=== PATIENT | male | born 1970 | race Caucasian/White ===

== ENCOUNTER 2016-11-11 16:41 | Day surgery (SDC) | payer OTHER ==
--- NOTE | ~2016-11-11 | OP ---
Record Of Operation [facility] [address] [place]. [address] NAME: EVELIA EASLEY : 70 STATUS : [facility]#: [id number] AGE: 45 ADM/REG DATE : 11/11/16 MR#: [id number] REPORT SERV DATE: 11/12/16 DICTATED BY: ASHTYN DAVALOS DATE: 11/12/16 REPORT STATUS : Draft TRANSCRIBED BY: MODL DATE: 11/12/16 DATE OF PROCEDURE: 11/11/2016 TITLE OF OPERATION: Cystourethroscopy, right retrograde pyelogram, right ureteroscopy with laser lithotripsy, and placement of 6 x 24 right ureteral stent with tether. PREOPERATIVE DIAGNOSIS: Right ureteral stone. POSTOPERATIVE DIAGNOSIS: Right ureteral stone. INDICATIONS: Mr. Easley is a 45-year-old patient who is a patient of my partner, Dr. Buenrostro. He had a symptomatic 4 mm stone. He has failed conservative management. I have been asked to treat his stone as Dr. Buenrostro is going on vacation. ANESTHESIA: General. COMPLICATIONS: None. IMPLANT: 6 x 26 right ureteral stent. SPECIMEN: Right stone for analysis. NARRATIVE: The patient was brought to the operating room, identified by his wristband. General anesthesia was induced. Levaquin was given for preoperative antibiotics. He was placed in dorsal lithotomy position, prepped and draped in sterile fashion. A 20-Israeli cystoscope was placed into his urethra and into his bladder. The urethra was normal as was the bladder. The right ureteral orifice was identified and cannulated with a 5-Israeli open- ended catheter. A retrograde pyelogram was shot, which demonstrated mild hydronephrosis and a filling defect in the proximal ureter. A wire was placed up through the catheter into the kidney under fluoroscopic guidance. Catheter was removed. A flexible ureteroscope was placed over the wire into the ureter. The ureter was inspected. There were no stones in the ureter. I drove the scope up into the kidney. All major minor calices were thoroughly inspected. There was a 4 mm stone. It was grasped with a flexible grasper and pulled back into the ureter. The stone was small and came down to the distal ureter easily. Once in the distal ureter, there was some resistance met. The basket was removed. The stone was fragmented into several small pieces with a 200 micron holmium laser fiber. These pieces were removed completely and sent to pathology for analysis. There was no other stones at all. There was no ureteral damage. A wire was then placed back up to the level of the kidney. A 6 x 24 ureteral stent was placed in standard fashion. The proximal coil was in the renal pelvis and the distal coil was in the bladder. A tether was left. The tether was taped to the penis. A 16-Israeli coude catheter was placed into the bladder. The balloon was inflated to 10 mL of sterile water. This catheter will be removed in the recovery room. The patient was awoken from anesthesia and transferred to the recovery room in stable condition. I will see him on Monday for stent removal. Record Of Operation [address] [place]. [address] NAME: EVELIA EASLEY : 70 STATUS : [facility] PAT#: [id number] AGE: 45 ADM/REG DATE : 11/11/16 MR#: [id number] REPORT SERV DATE: 11/12/16 DICTATED BY: ASHTYN DAVALOS DATE: 11/12/16 REPORT STATUS : Draft TRANSCRIBED BY: LIANG DATE: 11/12/16 KIM/LIANG Ashtyn Davalos MD / [id number] CC: MD Doug Rivera M.D.
[2016-11-11 17:28] LABS: BASOPHILS 0.5 %; BASOPHILS ABSOLUTE 0.04 10/3/uL (0.0-0.16); HEMATOCRIT 44.2 % (40.0-51.0); HEMOGLOBIN 15.6 g/dL (13.6-17.8); IMMATURE GRANULOCYTES 0.1 %; IMMATURE GRANULOCYTES ABSOLUTE 0.01 10/3/uL (0.0-0.11); LYMPHOCYTES 26.8 %; LYMPHOCYTES ABSOLUTE 2.15 10/3/uL (0.67-4.30); MEAN CORPUS HGB CONC 35.3 g/dL (32.0-36.0); MEAN CORPUSCULAR HEMOGLOB 32.2 pg (26.0-34.0); MEAN CORPUSCULAR VOLUME 91.3 fL (80-100); MEAN PLATELET VOLUME 9.6 fL (9.2-13.0); MONOCYTES 6.5 %; MONOCYTES ABSOLUTE 0.52 10/3/uL (0.21-1.20); NEUTROPHILS 61.1 %; NEUTROPHILS ABSOLUTE 4.91 10/3/uL (2.02-8.40); PLATELET COUNT 235 10/3/uL (150-400); RBC DISTRIBUTION WIDTH 12.3 % (12.0-16.0); RED CELL COUNT 4.84 10/6/uL (4.7-6.1)
[2016-11-11 17:29] LABS: MANUAL DIFF NO %
[2016-11-11 17:45] LABS: BUN (BLOOD UREA NITROGEN) 12 MG/DL (6-23); CALCIUM, SERUM 9.2 MG/DL (8.5-10.4); CHLORIDE, SERUM 104 MMOL/L (96-112); CO2 (CARBON DIOXIDE) 27 MMOL/L (24-34); CREATININE 0.99 MG/DL (0.70-1.30); GFR AFRICAN AMERICAN 106 ML/MIN (>=60); GFR NON AFRICAN AMERICAN 92 ML/MIN (>=60); GLUCOSE, SERUM 96 MG/DL (60-99); POTASSIUM, SERUM 3.6 MMOL/L (3.5-5.3); SODIUM, SERUM 139 MMOL/L (135-148)
== END 2016-11-11 21:50 | disposition home or self-care (01) ==
LOC: SDC 16:41
PROVIDERS: Urology
PROC: 0T768DZ Dilation of Right Ureter with Intraluminal Device, Via Natural or Artificial Opening Endoscopic (ICD-10-PCS; 2016-11-11)
PROC: 0TF68ZZ Fragmentation in Right Ureter, Via Natural or Artificial Opening Endoscopic (ICD-10-PCS; principal; 2016-11-11 16:45)
DX: N13.2 Hydronephrosis with renal and ureteral calculous obstruction (principal); Z87.891 Personal history of nicotine dependence
CPT/HCPCS: 74420; 80048; 82365; 85025; 93005; C1758; C2617; J2710; Q9967